=== PATIENT | male | born 1985 | race Caucasian/White ===

== ENCOUNTER 2017-12-09 10:04 | Emergency (ER) | payer OTHER ==
[~2017-12-09] VITALS: Ht 188 cm; Wt 113.4 kg
[2017-12-09 11:31] LABS: URINE BILIRUBIN NEGATIVE (Negative); URINE BLOOD NEGATIVE (Negative); URINE CLARITY CLEAR; URINE COLOR ORANGE; URINE GLUCOSE-RANDOM* NEGATIVE (Negative); URINE KETONES NEGATIVE (Negative); URINE LEUKOCYTES 2+ (Negative); URINE NITRITE POSITIVE (Negative); URINE PROTEIN (DIPSTICK) TRACE (Negative); URINE SPECIFIC GRAVITY <= 1.005 (1.005-1.035)
[2017-12-09 11:53] LABS: CASTS None Seen /LPF (None Seen); CRYSTALS None Seen /LPF (None Seen); SQUAMOUS None Seen /LPF (0-3); URINE RBC 0-2 Rare /HPF (0-2); URINE WBC >25 Many /HPF (0-5)
[2017-12-09 11:54] LABS: BACTERIA >30 Many /HPF (None Seen)
== END 2017-12-09 12:24 | disposition home or self-care (01) ==
LOC: ER 10:04
PROVIDERS: Nurse Practitioner
DX: N39.0 Urinary tract infection, site not specified (principal)